=== PATIENT | female | born 1955 | race Caucasian/White ===

== ENCOUNTER → 2021-07-03 11:47 | Outpatient (CLI) | payer MEDICARE, OTHER, SELFPAY ==
[2021-07-03 13:24] LABS: COVID19 -Nasal RAPID Negative (Negative)
== END ==
PROVIDERS: Family Provider Nurse Practitioner Family; PCP Nurse Practitioner Family; Visit Provider Nurse Practitioner
DX: Z01.812 Encounter for preprocedural laboratory examination (principal); Z20.822 Contact with and (suspected) exposure to COVID-19; M81.0 Age-related osteoporosis without current pathological fracture; Z78.0 Asymptomatic menopausal state; Z82.62 Family history of osteoporosis
CPT/HCPCS: 77080; 87635; C9803

== ENCOUNTER → 2021-07-03 14:48 | Outpatient (CLI) | payer MEDICARE, OTHER, SELFPAY ==
--- NOTE | 2021-07-03 | DI.MG.S_ITS ---
BILATERAL DIGITAL SCREENING MAMMOGRAM 3D/2D WITH CAD: 07/03/2021 CLINICAL: Routine screening. Comparison is made to exams dated: 02/24/2014 mammogram, 12/22/2012 mammogram, and 08/30/2011 mammogram - Located Within [facility]. The tissue of both breasts is predominantly fatty. Current study was also evaluated with a Computer Aided Detection (CAD) system. No significant masses, calcifications, or other findings are seen in either breast. There has been no significant interval change. IMPRESSION: NEGATIVE There is no mammographic evidence of malignancy. A 1 year screening mammogram is recommended. This exam was interpreted at Station ID: [id number]. NOTE: For mammograms, a report in lay terms will be sent to the patient. Approximately 15% of breast malignancies will not be visualized mammographically. In the management of a palpable breast mass, a negative mammogram must not discourage biopsy of a clinically suspicious lesion. Electronically Signed By: Ernesto Lopez M.D., jr/monae:07/03/2021 16:11:30 letter sent: Normal Exam ACR BI-RADS Category 1: Negative [id number]
--- NOTE | 2021-07-03 | DI.RAD.S_ITS ---
PROCEDURE: XR DEXA AXIAL SKELETON INDICATIONS: ROUTINE SCREENING COMPARISON: None. FINDINGS: This blank DEXA report has been sent in error by the PACS system. The correct and complete report will be forthcoming in 1-2 days. Thank you for your patience and understanding. Dictated by: Sally Cuevas MD, PhD on 07/03/2021 at 16:34 Approved by: Sally Cuevas MD, PhD on 07/03/2021 at 16:34
== END ==
PROVIDERS: Family Provider Nurse Practitioner Family; PCP Student in an Organized Health Care Education/Training Program; Referring Provider Student in an Organized Health Care Education/Training Program; Visit Provider Student in an Organized Health Care Education/Training Program
DX: Z12.31 Encounter for screening mammogram for malignant neoplasm of breast (principal)
CPT/HCPCS: 77063; 77067; 77080

== ENCOUNTER 2021-07-05 13:23 | Day surgery (SDC) | payer MEDICARE, OTHER, SELFPAY ==
[2021-07-05] VITALS (8 sets, daily range): BP systolic 127–151; BP diastolic 7–84; PULSE 54–71; RESP 13–21; TEMP 36.6–36.7; O2SAT 95–98; BMI 29.2
--- NOTE | 2021-07-05 12:39 | PM.HP.1 ---
History of Present Illness History of Present Illness Date Patient Seen: 07/05/21 Chief complaint: SCREENING COLONOSCOPY Narrative: 65 year old female comes in today for consideration of a screening colonoscopy. She has had 4 previous colonoscopies, all with polyps. There have been no lower GI symptoms suggesting disease such as change in bowel habits, bleeding, abdominal pain or anemia. Both mother and maternal grandmother had colon cancer. Overall health issues have been stable, including no major cardiac events for at least 6 weeks. PCP: Dr. Gong Past Medical History: HYPERTENSION: MURMUR: HYPERLIPIDEMIA: DEPRESSION/ANXIETY: OSTEOPOROSIS: VITAMIN D DEFICIENCY: HYSTERECTOMY (1996): Past Surgical History: Appendectomy (1994) Partial Hysterectomy (1996) Laser liposuction of abdomen-2014 , 1988 [place] teeth Vein ablation Colonoscopy x4 Family History: Father: age 76, multiple myleoma, Alzheimer's, Leukemia, Hypertension, Hyperlipidemia. 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 - [employer] Household Members: 2 () Education: 2 glasses of wine daily Alcohol drinks/day: 2/day Caffeine use/day: 2 Type of Exercise: walk Exercise Times per Week: daily Guns in home: yes Dental Care w/in 6 mos.: yes Sun Exposure: occasionally Seat Belt Use: yes Smoking Status: never Drug Use: never HIV High Risk Behavior: no Patient History Medical History (Updated 07/05/21 @ 14:24 by Kelly Tyler RN) Anxiety Depression Hyperlipemia Hypertension Murmur Osteoporosis Vitamin D deficiency Surgical History (Updated 07/05/21 @ 14:24 by Kelly Tyler RN) History of hysterectomy Meds Home Medications and Allergies Home Medications Medication Instructions Recorded Confirmed Type amlodipine 5 mg tablet 7.5 mg PO DAILY 07/05/21 07/05/21 History ashwagandha root extract 300 mg 300 mg PO DAILY 07/05/21 07/05/21 History capsule cholecalciferol (vitamin D3) 50 2,000 unit PO DAILY 07/05/21 07/05/21 History mcg (2,000 unit) capsule (Vitamin D3) niacin 1,000 mg tablet,extended 1,000 mg PO DAILY 07/05/21 07/05/21 History release 24 hr rosuvastatin 40 mg tablet 40 mg PO DAILY 07/05/21 07/05/21 History Allergies Allergy/AdvReac Type Severity Reaction Status Date / Time nitrofurantoin Allergy Severe Headache Verified 07/05/21 13:54 [From Macrobid] adhesive tape Allergy Intermediate Rash Verified 07/05/21 13:54 cephalexin Allergy Mild RASH Unverified 12/30/17 12:00 iodine Allergy Mild RASH Unverified 12/30/17 12:00 oxycodone Allergy Mild RASH Unverified 12/30/17 12:00 Review of Systems Review of Systems Narrative: See HPI. Exam Narrative Exam Narrative: GENERAL: Alert and oriented, appearing stated age and in no acute distress. HEENT: Head normocephalic/atraumatic. LUNGS: Clear to ausculation bilaterally, no wheezes, rhonchi or rales. CV: Normal S1 and S2 with regular rate and rhythm, no audible murmurs, rubs or gallops. ABDOMEN: Soft, non-tender, non-distended, no organomegaly. Positive bowel sounds. EXTREMITIES: No clubbing, cyanosis, or edema. NEURO: Cranial nerves II through XII grossly intact, no focal deficits. PSYCH: Alert and oriented x 3. SKIN: No concerning lesions. Assessment & Plan Assessment & Plan narrative: 1. History of colon polyps 2. Family history of colon cancer 3. Screening for colon cancer Plan for colonoscopy. The nature and character of the procedure as well as anticipated results were discussed. The possibility of not completing the procedure was also discussed. Possible complications including aspiration pneumonia, bleeding, perforation and reaction to medications either for sedation or preparation and missed lesions were discussed. Questions were answered and proceeding to the colonoscopy was elected. Informed consent signed. I sincerely appreciate the referral allowing me to participate in this patient's care. Please contact me with any questions or concerns. Time Spent With Patient Critical Care time: I spent a total of [] minutes of critical care time on this patient's care today; this time is exclusive of procedural time.
--- NOTE | 2021-07-05 12:42 | PM.OP.COLON ---
Procedure Notes SCOAP/Timeout: 2:35 p.m. Procedure in detail: ENDOSCOPIST: Izzy Gong MD Sedation RN: Siri Rincon RN Sedation start time: 2:36 p.m. Sedation end time: 3:01 p.m. PROCEDURE: Colonoscopy INDICATIONS: 1. History of colon polyps 2. Family history of colon cancer 3. Screening for colon cancer MEDICATION: Levsin 0.125 mg sublingual, incremental doses of Versed and fentanyl until appropriate level sedation achieved. ASA CLASS: 2 CECAL WITHDRAWAL TIME: 10 minutes COMPLICATIONS: None. EXTENT OF PROCEDURE: Cecum. QUALITY OF PREP: Good with portions of liquid stool. PROCEDURE: Prior to insertion of the colonoscope, a digital rectal examination was accomplished with circumferential palpation of the distal rectal mucosa without significant findings being noted. The high-definition pediatric colonoscope was passed into the rectum in the usual fashion and advanced over to the cecum without difficulty. The ileocecal valve, appendiceal stoma, and medial wall all could be inspected and no abnormalities were seen. ASCENDING COLON: As the colonoscope was withdrawn, care was taken to expose and inspect the haustral folds and no abnormalities were seen. HEPATIC FLEXURE: Normal, no polyps, diverticula or other abnormalities. TRANSVERSE COLON: Normal, no polyps, diverticula or other abnormalities. DESCENDING COLON: Normal, no polyps, diverticula or other abnormalities. SIGMOID COLON: Normal, no polyps, diverticula or other abnormalities. RECTUM: Normal. J maneuver was produced. There was no significant perianal disease. The J maneuver was broken. The remainder of the rectum was inspected and there was no external hemorrhoid disease. The scope was withdrawn. IMPRESSION: 1. Normal colonoscopy PLAN: 1. Secondary to personal history of colon polyps and family history of colon cancer, repeat colonoscopy in 5 years. The possibility of a missed lesion including a malignancy has been discussed with the patient previously. Potential alarm symptoms have been discussed and should be reported immediately.
[2021-07-05] MEDS: LACTATED RINGERS 1,000 ML 42 ML IV (14:07)
[2021-07-05] MEDS: MIDAZOLAM 5 MG/5 ML VIAL IV (15:04)
[2021-07-05] MEDS: fentaNYL 250 MCG/5 ML INJ IV (15:05)
== END 2021-07-05 15:55 | disposition home or self-care (01) ==
PROVIDERS: Family Provider Nurse Practitioner Family; PCP Student in an Organized Health Care Education/Training Program; Referring Provider Student in an Organized Health Care Education/Training Program; Visit Provider Student in an Organized Health Care Education/Training Program
PROC: 0DJD8ZZ Inspection of Lower Intestinal Tract, Via Natural or Artificial Opening Endoscopic (ICD-10-PCS; CPT 45378; principal; 2021-07-05 14:30)
DX: Z12.11 Encounter for screening for malignant neoplasm of colon (principal); Z86.010 Personal history of colon polyps; Z80.0 Family history of malignant neoplasm of digestive organs; I10 Essential (primary) hypertension; E78.5 Hyperlipidemia, unspecified; E55.9 Vitamin D deficiency, unspecified; R01.1 Cardiac murmur, unspecified
CPT/HCPCS: G0105; J2250; J3010

== ENCOUNTER → 2022-04-20 14:37 | Outpatient (CLI) | payer MEDICARE, OTHER, SELFPAY ==
--- NOTE | 2022-04-20 14:42 | DI.RAD.S_ITS ---
PROCEDURE: XR CHEST 2V INDICATIONS: Cough TECHNIQUE: 2 views of the chest were acquired. COMPARISON: [facility], , CHEST 1 VIEW, 11/07/2013, 17:06. FINDINGS: Surgical changes and devices: None. Lungs and pleura: Lungs are clear. No pleural effusions or pneumothorax. Mediastinum: Mediastinal contours are normal. Heart size is normal. Bones and chest wall: No suspicious bony abnormalities. Soft tissues appear unremarkable. IMPRESSION: No evidence acute pulmonary process. Dictated by: Teo Trevino M.D. on 04/20/2022 at 14:13 Approved by: Teo Trevino M.D. on 04/20/2022 at 14:14
== END ==
PROVIDERS: Family Provider Nurse Practitioner Family; PCP Student in an Organized Health Care Education/Training Program; Referring Provider Nurse Practitioner Family; Visit Provider Nurse Practitioner Family
DX: R05.9 Cough, unspecified (principal)
CPT/HCPCS: 71046

== ENCOUNTER 2022-05-20 04:50 | Emergency (ER) | payer MEDICARE, OTHER, SELFPAY ==
[2022-05-20 05:00] VITALS: BP 159/74; PULSE 60; RESP 18; TEMP 36.2; O2SAT 97; BMI 30.2
--- NOTE | 2022-05-20 05:26 | PC.NURSE ---
pt states she awoke with these symptoms about 24 hours ago. Pain starts at her left back and radiates to her mid abdomen. denies difficulty urinating. SOB, nausea, numbness or tingling
--- NOTE | 2022-05-20 05:57 | ED_ITS ---
HPI - Back Pain/Injury General Chief Complaint: Back Pain/Injury Stated Complaint: severe back pain, muscle spasms Time Seen by Provider: 05/20/22 05:26 Source: patient Related Data Home Medications Medication Instructions Recorded Confirmed amlodipine 5 mg tablet 7.5 mg PO DAILY 07/05/21 04/20/22 ashmarinadha root extract 300 mg 300 mg PO DAILY 07/05/21 04/20/22 capsule cholecalciferol (vitamin D3) 50 2,000 unit PO DAILY 07/05/21 04/20/22 mcg (2,000 unit) capsule (Vitamin D3) niacin 500 mg capsule,extended 500 mg PO DAILY 04/20/22 04/20/22 release rosuvastatin 20 mg tablet 20 mg PO DAILY 04/20/22 04/20/22 Previous Rx's Medication Instructions Recorded benzonatate 100 mg capsule 100 mg PO BID PRN cough #20 caps 04/20/22 Allergies Allergy/AdvReac Type Severity Reaction Status Date / Time nitrofurantoin Allergy Severe Headache Verified 04/20/22 14:27 [From Macrobid] adhesive tape Allergy Intermediate Rash Verified 04/20/22 14:27 cephalexin Allergy Mild RASH Verified 04/20/22 14:27 iodine Allergy Mild RASH Verified 04/20/22 14:27 oxycodone Allergy Mild RASH Verified 04/20/22 14:27 Patient History Medical History (Updated 07/05/21 @ 14:24 by Kelly Tyler RN) Anxiety Depression Hyperlipemia Hypertension Murmur Osteoporosis Vitamin D deficiency Surgical History (Updated 07/05/21 @ 14:24 by Kelly Tyler RN) History of hysterectomy Social History household members: family Smoking Status: Never smoker alcohol intake: current Smoking Status: Never smoker alcohol intake frequency: 0-2 drinks per day Substance Use Type: does not use Exam Initial Vital Signs Initial Vital Signs: Vital Signs Temperature 97.1 F L 05/20/22 05:00 Pulse Rate 60 05/20/22 05:00 Respiratory Rate 18 05/20/22 05:00 Blood Pressure 159/74 H 05/20/22 05:00 Pulse Oximetry 97 05/20/22 05:00 Oxygen Delivery Method 05/20/22 05:00 Course Orders Ordered: ED Orders 05/20/22 EKG-12 Lead Routine 05/20/22 05:20 Complete Blood Count AUTO DIFF Stat Comprehensive Metabolic Panel Stat Lipase Stat Magnesium Stat 05/20/22 06:29 XR chest 1V Stat 05/20/22 06:30 CT abdomen pelvis w con Stat Hydromorphone HCl (Hydromorphone 0.5 Mg Inj) 0.5 mg IV Q15MIN PRN PRN Reason: Pain, Last Admin: 05/20/22 06:34 Dose: 0.5 mg Documented By: YADIEL Sodium Chloride (Normal Saline 0.9%) 1,000 mls @ 1,000 mls/hr IV BOLUS ONE Stop: 05/20/22 07:27 Last Admin: 05/20/22 06:34 Dose: 1,000 mls/hr Documented By: YADIEL Discontinued Medications Ketorolac Tromethamine (Ketorolac 30 Mg/Ml Vial) 15 mg IV NOW ONE Stop: 05/20/22 06:29 Last Admin: 05/20/22 06:34 Dose: 15 mg Documented By: YADIEL Vital Signs Vital signs: Vital Signs - 8 hr 05/20/22 05:00 Temperature 97.1 F L Pulse Rate 60 Respiratory Rate 18 Blood Pressure 159/74 H Pulse Oximetry 97 Oxygen Delivery Method Room Air MDM - Back Pain/Injury Lab Data Result diagrams: 05/20/22 05:20 05/20/22 05:20 Labs: Lab Results 05/20/22 05/20/22 Range/Units 05:20 05:20 WBC 5.3 (4.5-11.0) X10^3/uL RBC 4.48 (4.0-5.2) X10^6/uL Hgb 12.2 (12.0-16.0) g/dL Hct 36.9 (36-46) % MCV 82.4 (80-100) fL MCH 27.2 (26-34) PG MCHC 33.1 (30-36) % RDW 18.8 H (11.6-14.8) % Plt Count 212 (150-400) X10^3/uL Neut % (Auto) 58.8 (50-75) % Lymph % (Auto) 22.3 L (25-40) % [place] % (Auto) 15.3 H (3-14) % Eos % (Auto) 2.7 (2-4) % Baso % (Auto) 0.9 (0-2) % Neut # (Auto) 3100 (1587-4375) /uL Lymph # (Auto) 1200 (0132-2853) /uL [place] # (Auto) 800 (0-900) /uL Eos # (Auto) 100 (0-450) /uL Baso # (Auto) 0 (0-100) /uL Sodium 139 (137-145) mmol/L Potassium 4.4 (3.4-5.1) mmol/L Chloride 106 (98-107) mmol/L Carbon Dioxide 27 (22-32) mmol/L BUN 17 (7-17) mg/dL Creatinine 0.69 (0.52-1.04) mg/dL Estimated GFR > 60 (>60) mL/min BUN/Creatinine Ratio 24.6 H (6-22) Glucose 104 (80-110) mg/dL Calcium 8.8 (8.4-10.2) mg/dL Magnesium 2.2 (1.6-2.3) mg/dL Total Bilirubin 0.5 (0.2-1.3) mg/dL AST 28 (14-36) IU/L ALT 20 (<35) IU/L Alkaline Phosphatase 52 (38-126) U/L Total Protein 7.6 (6.3-8.2) g/dL Albumin 4.2 (3.5-5.0) g/dL Globulin 3.4 (1.7-4.1) g/dL Albumin/Globulin Ratio 1.2 (1.0-2.8) Lipase 64 (23-300) U/L Urine Dip Bedside Urine Glucose Negative Bedside Urine Bilirubin - Negative Bedside Urine Ketone - Negative Urine Specific [place] 1.025 Bedside Urine Occult Blood - Negative Bedside Urine pH 6.0 Bedside Urine Protein - Negative Bedside Urine Urobilinogen - Negative Bedside Urine Nitrite - Negative Bedside Urine Leukocytes - Negative Esterase Discharge Plan Departure Prescriptions: No Action niacin 500 mg capsule, extended release 500 mg PO DAILY rosuvastatin 20 mg tablet 20 mg PO DAILY benzonatate 100 mg capsule 100 mg PO BID PRN (Reason: cough) Qty: 20 0RF amlodipine 5 mg tablet 7.5 mg PO DAILY Label Comments: take 1 tablet by mouth once daily cholecalciferol (vitamin D3) [Vitamin D3] 50 mcg (2,000 unit) Capsule 2,000 unit PO DAILY ashwagandha root extract 300 mg Capsule 300 mg PO DAILY Referrals: Izzy Gong MD [Primary Care Provider] -
--- NOTE | 2022-05-20 06:29 | DI.RAD.S_ITS ---
PROCEDURE: XR CHEST 1V INDICATIONS: LUQ pain TECHNIQUE: One view of the chest was acquired. COMPARISON: [facility], CR, XR CHEST 2V, 04/20/2022, 14:46. FINDINGS: Surgical changes and devices: None. Lungs and pleura: Bibasilar atelectasis are seen. No definite focal infiltrate. No pleural effusions or pneumothorax. Mediastinum: Tortuous thoracic aorta is seen. Heart size is mildly enlarged. Bones and chest wall: No suspicious bony lesions. Overlying soft tissues appear unremarkable. IMPRESSION: Bibasilar atelectasis. No definite focal infiltrate. No pleural effusion or pneumothorax. Dictated by: Seven Oakley M.D. on 05/20/2022 at 8:02 Approved by: Seven Oakley M.D. on 05/20/2022 at 8:02
--- NOTE | 2022-05-20 06:30 | DI.CT.S_ITS ---
PROCEDURE: CT ABDOMEN PELVIS W CON INDICATIONS: LUQ pain TECHNIQUE: After the administration of intravenous contrast, axial sections acquired from the lung bases to the pubic symphysis. Coronal and sagittal reformats were performed. For radiation dose reduction, the following was used: automated exposure control, adjustment of mA and/or kV according to patient size. COMPARISON: None. FINDINGS: Image quality: Excellent. Lung bases: Dependent atelectasis/scarring in posterior and lateral periphery of bilateral lung bases are seen. Small left basilar infiltrates cannot be excluded. No pleural effusion or pneumothorax. Heart: No significant findings. ABDOMEN: Liver: Unremarkable. Gallbladder: Unremarkable. Biliary ducts: Unremarkable. Pancreas: Unremarkable. Spleen: Unremarkable. Adrenal Glands: Unremarkable. Kidneys and Ureters: Unremarkable. Stomach and Bowel: There is a small hiatal hernia. No evidence of bowel obstruction. Moderate fecal stasis in the colon is seen. No gross gastric or small bowel wall thickening. Questionable wall thickening involving distal descending colon in left lower quadrant abdomen is seen which may be due to under distension, low-grade colitis or diverticulitis cannot be entirely excluded. Mild sigmoid and descending colon diverticulosis is seen. No significant pericolonic fat stranding. No abscess collection. Peritoneum: No abnormal intraperitoneal fluid. No free air. Ventral Wall: No hernias. Abdominal Nodes: No retroperitoneal or mesenteric adenopathy by size criteria. Vessels: Aorta and inferior vena cava are normal in size. Mild atherosclerotic disease in abdominal aorta is seen. PELVIS: Pelvic Organs: Unremarkable. Bladder: Unremarkable. Pelvic Nodes: No enlarged lymph nodes. Miscellaneous: No hernias are seen. Bones: No suspicious bony lesion. No acute vertebral body compression fracture. Chronic appearing anterior wedge compression deformity at L1 and L2 levels are seen with up to 20% loss of L1 vertebral body height anteriorly. IMPRESSION: 1. Questionable colonic wall thickening involving distal descending colon and possibly proximal sigmoid colon which may indicate low-grade colitis versus diverticulitis. No abscess collection. No free fluid or free air. 2. Mild constipation. No evidence of bowel obstruction. 3. Bibasilar scarring/atelectasis, small infiltrates at left lung base cannot be excluded. No pleural effusion or pneumothorax. Dictated by: Seven Oakley M.D. on 05/20/2022 at 8:03 Approved by: Seven Oakley M.D. on 05/20/2022 at 8:07
[2022-05-20] MEDS: KETOROLAC 30 MG/ML VIAL 15 MG IV (06:34)
[2022-05-20] MEDS: SODIUM CHLORIDE 0.9% 1,000 ML 1000 ML IV (06:34)
[2022-05-20] MEDS: HYDROMORPHONE 0.5 MG INJ IV (06:34)
[2022-05-20 06:40] LABS: Add Manual Diff / Slide Review NO; Basophils Absolute Auto 0 /uL (0-100); Basophils Percent Auto 0.9 % (0-2); Eosinophils Absolute Auto 100 /uL (0-450); Eosinophils Percent Auto 2.7 % (2-4); Hematocrit 36.9 % (36-46); Hemoglobin 12.2 g/dL (12.0-16.0); Lymphocytes Absolute Auto 1200 /uL (1100-4500); Lymphocytes Percent Auto 22.3 % (25-40); Mean Corpuscular HGB Conc 33.1 % (30-36); Mean Corpuscular Hemoglobin 27.2 PG (26-34); Mean Corpuscular Volume 82.4 fL (80-100); Monocytes Absolute Auto 800 /uL (0-900); Monocytes Percent Auto 15.3 % (3-14); Neutrophils Absolute Auto 3100 /uL (1500-7000); Neutrophils Percent Auto 58.8 % (50-75); Platelet Count 212 X10^3/uL (150-400); Red Blood Cell Count 4.48 X10^6/uL (4.0-5.2); Red Cell Distribution Width 18.8 % (11.6-14.8); White Blood Cell Count 5.3 X10^3/uL (4.5-11.0)
[2022-05-20 06:44] LABS: Alanine Aminotransferase 20 IU/L (<35); Albumin 4.2 g/dL (3.5-5.0); Albumin Globulin Ratio 1.2 (1.0-2.8); Alkaline Phosphatase 52 U/L (38-126); Aspartate Aminotransferase 28 IU/L (14-36); BUN Creatinine Ratio 24.6 (6-22); Bilirubin Total 0.5 mg/dL (0.2-1.3); Blood Urea Nitrogen 17 mg/dL (7-17); Calcium 8.8 mg/dL (8.4-10.2); Carbon Dioxide 27 mmol/L (22-32); Chloride 106 mmol/L (98-107); Estimated Glomerular Filt Rate > 60 mL/min (>60); Globulin 3.4 g/dL (1.7-4.1); Glucose 104 mg/dL (80-110); HEMOLYSIS < 15 (0-50); Lipase 64 U/L (23-300); Magnesium 2.2 mg/dL (1.6-2.3); Potassium 4.4 mmol/L (3.4-5.1); Sodium 139 mmol/L (137-145); Total Protein 7.6 g/dL (6.3-8.2)
[2022-05-20 07:00] VITALS: BP 134/62; PULSE 53; RESP 26; O2SAT 94
[2022-05-20 07:44] VITALS: PULSE 63; RESP 17; O2SAT 93
[2022-05-20 07:45] VITALS: BP 133/64; PULSE 60; RESP 20; O2SAT 97
--- NOTE | 2022-05-20 07:49 | ED_ITS ---
HPI - Back Pain/Injury General Chief Complaint: Back Pain/Injury Stated Complaint: severe back pain, muscle spasms Time Seen by Provider: 05/20/22 05:26 Source: patient Limitations: no limitations History of Present Illness HPI Narrative: 66-year-old female with history of dyslipidemia hypertension presents with back pain and started after getting up she states her back was bothering her a little bit and she describes it as lower thoracic. Patient states she is had some sacroiliac issues in the past but not in her back higher up. She states she would a fall 4 months ago thing she cracked some ribs but this had healed. She denies fevers or chills. She is had some persistent cough at night month ago she had upper respiratory illness, tested negative for COVID 4 times and has recovered except for her nighttime cough. Denies chest pain or pressure, denies shortness of breath, denies any syncope or passing out. No nausea or vomiting. States some decrease in stool output but having bowel movements. No dysuria urgency or frequency or color change. No bowel or bladder incontinence. She states pain does not radiate down the legs, she does not have any numbness or tingling. Movement of her legs does not seem to bother her but movement of her torso does. She states started on the left side radiates a little bit to the right but Maze mostly on the left patient states she is on a statin for cholesterol and antihypertensive. She is had a prior hysterectomy and appendectomy. She is allergic to Cipro, Macrobid, Percodan topical iodine but tolerates contrast. No tobacco, 1-2 alcoholic drinks nightly, no illicit other than THC edible gummy. Related Data Home Medications Medication Instructions Recorded Confirmed amlodipine 5 mg tablet 7.5 mg PO DAILY 07/05/21 04/20/22 ashwagandha root extract 300 mg 300 mg PO DAILY 07/05/21 04/20/22 capsule cholecalciferol (vitamin D3) 50 2,000 unit PO DAILY 07/05/21 04/20/22 mcg (2,000 unit) capsule (Vitamin D3) niacin 500 mg capsule,extended 500 mg PO DAILY 04/20/22 04/20/22 release rosuvastatin 20 mg tablet 20 mg PO DAILY 04/20/22 04/20/22 Previous Rx's Medication Instructions Recorded benzonatate 100 mg capsule 100 mg PO BID PRN cough #20 caps 04/20/22 cyclobenzaprine 10 mg tablet 10 mg PO TID PRN muscle spasm #14 05/20/22 tabs meloxicam 7.5 mg tablet 7.5 mg PO BID PRN pain #14 tabs 05/20/22 Allergies Allergy/AdvReac Type Severity Reaction Status Date / Time nitrofurantoin Allergy Severe Headache Verified 04/20/22 14:27 [From Macrobid] adhesive tape Allergy Intermediate Rash Verified 04/20/22 14:27 cephalexin Allergy Mild RASH Verified 04/20/22 14:27 iodine Allergy Mild RASH Verified 04/20/22 14:27 oxycodone Allergy Mild RASH Verified 04/20/22 14:27 Review of Systems Review of Systems ROS Unobtainable: All systems reviewed & are unremarkable except as noted in HPI and below Patient History Medical History Anxiety Depression Hyperlipemia Hypertension Murmur Osteoporosis Vitamin D deficiency Surgical History History of hysterectomy Social History household members: family Smoking Status: Never smoker alcohol intake: current Smoking Status: Never smoker alcohol intake frequency: 0-2 drinks per day Substance Use Type: does not use Exam Narrative Exam Narrative: GENERAL: Alert and oriented x three, female in mild distress. Patient has already been medicated when seen by myself. HEENT: Head normocephalic, atraumatic, EOMI, pupils reactive, face symmetric, moist mucous membranes NECK: Supple, full range of motion CARDIOVASCULAR: Regular rate and rhythm without murmurs, rubs or gallops. RESPIRATORY: Breath sounds equal bilaterally, no wheezes rales or rhonchi. ABDOMEN: Soft, nontender. Normoactive bowel sounds all 4 quadrants. No guarding or rebound, rigidity, no mass : No CVA tenderness BACK: No cervical, thoracic or lumbar vertebral point tenderness. Patient has decreased range of motion, she does appear to be uncomfortable when trying to lean forward in the bed and requires a little bit of assistance forward. No saddle anesthesia. Muscle strength is 5/5 in lower extremities, DTRs are 2/4 and lower extremities. Dorsalis pedis and tibialis pulses are 2+ and lower extremities. Sensation is intact in the lower extremities. Patient does not have increased pain with straight leg raise bilaterally. EXTREMITIES: Normal range of motion, no clubbing or edema. Neurovascularly intact NEUROLOGICAL: Cranial nerves II through XII grossly intact. Moving all extremities SKIN: Warm, dry, no petechiae, no rashes or lesions, no vesicles or erythema. Initial Vital Signs Initial Vital Signs: Vital Signs Temperature 97.1 F L 05/20/22 05:00 Pulse Rate 60 05/20/22 05:00 Respiratory Rate 18 05/20/22 05:00 Blood Pressure 159/74 H 05/20/22 05:00 Pulse Oximetry 97 05/20/22 05:00 Oxygen Delivery Method 05/20/22 05:00 Course Orders Ordered: Discontinued Medications Hydromorphone HCl (Hydromorphone 0.5 Mg Inj) 0.5 mg IV Q15MIN PRN PRN Reason: Pain, Last Admin: 05/20/22 06:34 Dose: 0.5 mg Documented By: YADIEL Sodium Chloride (Normal Saline 0.9%) 1,000 mls @ 1,000 mls/hr IV BOLUS ONE Stop: 05/20/22 07:27 Last Infusion: 05/20/22 08:25 Dose: 0 mls/hr Documented By: Admin: 05/20/22 06:34 Dose: 1,000 mls/hr Documented By: YADIEL Ketorolac Tromethamine (Ketorolac 30 Mg/Ml Vial) 15 mg IV NOW ONE Stop: 05/20/22 06:29 Last Admin: 05/20/22 06:34 Dose: 15 mg Documented By: YADIEL Vital Signs Vital signs: Vital Signs - 8 hr 05/20/22 05:00 05/20/22 07:00 05/20/22 07:00 Temperature 97.1 F L Pulse Rate 60 53 L Respiratory Rate 18 26 H Blood Pressure 159/74 H 134/62 Pulse Oximetry 97 94 Oxygen Delivery Method Room Air MDM - Back Pain/Injury Lab Data Result diagrams: 05/20/22 05:20 05/20/22 05:20 Labs: Lab Results 05/20/22 05/20/22 Range/Units 05:20 05:20 WBC 5.3 (4.5-11.0) X10^3/uL RBC 4.48 (4.0-5.2) X10^6/uL Hgb 12.2 (12.0-16.0) g/dL Hct 36.9 (36-46) % MCV 82.4 (80-100) fL MCH 27.2 (26-34) PG MCHC 33.1 (30-36) % RDW 18.8 H (11.6-14.8) % Plt Count 212 (150-400) X10^3/uL Neut % (Auto) 58.8 (50-75) % Lymph % (Auto) 22.3 L (25-40) % Holmes % (Auto) 15.3 H (3-14) % Eos % (Auto) 2.7 (2-4) % Baso % (Auto) 0.9 (0-2) % Neut # (Auto) 3100 (5818-8603) /uL Lymph # (Auto) 1200 (9363-4656) /uL Holmes # (Auto) 800 (0-900) /uL Eos # (Auto) 100 (0-450) /uL Baso # (Auto) 0 (0-100) /uL Sodium 139 (137-145) mmol/L Potassium 4.4 (3.4-5.1) mmol/L Chloride 106 (98-107) mmol/L Carbon Dioxide 27 (22-32) mmol/L BUN 17 (7-17) mg/dL Creatinine 0.69 (0.52-1.04) mg/dL Estimated GFR > 60 (>60) mL/min BUN/Creatinine Ratio 24.6 H (6-22) Glucose 104 (80-110) mg/dL Calcium 8.8 (8.4-10.2) mg/dL Magnesium 2.2 (1.6-2.3) mg/dL Total Bilirubin 0.5 (0.2-1.3) mg/dL AST 28 (14-36) IU/L ALT 20 (<35) IU/L Alkaline Phosphatase 52 (38-126) U/L Total Protein 7.6 (6.3-8.2) g/dL Albumin 4.2 (3.5-5.0) g/dL Globulin 3.4 (1.7-4.1) g/dL Albumin/Globulin Ratio 1.2 (1.0-2.8) Lipase 64 (23-300) U/L Urine Dip Bedside Urine Glucose Negative Bedside Urine Bilirubin - Negative Bedside Urine Ketone - Negative Urine Specific [place] 1.025 Bedside Urine Occult Blood - Negative Bedside Urine pH 6.0 Bedside Urine Protein - Negative Bedside Urine Urobilinogen - Negative Bedside Urine Nitrite - Negative Bedside Urine Leukocytes - Negative Esterase Imaging Data CT scan - abdomen/pelvis: Radiologist's Impression: Close Abdomen/Pelvis CT (Signed) Seven Oakley - 05/20/22 Chest X-Ray (Signed) Seven Oakley - 05/20/22 Launch?[place] [id number] CT Scan Report Signed Patient: Gianni Peña MR#: [id number] : 1955 Acct:[id number] Age/Sex: 66 / F Date of Service: 05/20/22 Loc: ED Accession Number: [id number] ?? Procedure: CT abdomen pelvis w con Ordering Provider: Lashaun Chavarria MD PROCEDURE:? CT ABDOMEN PELVIS W CON ? INDICATIONS:? LUQ pain ? TECHNIQUE:? After the administration of intravenous contrast, axial sections acquired from the lung bases to the pubic symphysis.? Coronal and sagittal reformats were performed.? For radiation dose reduction, the following was used:? automated exposure control, adjustment of mA and/or kV according to patient size.? ? COMPARISON:? None. ? FINDINGS:? Image quality:? Excellent.? ? Lung bases:? Dependent atelectasis/scarring in posterior and lateral periphery of bilateral lung bases are seen.? Small left basilar infiltrates cannot be excluded.? No pleural effusion or pneumothorax. Heart:? No significant findings. ? ABDOMEN: Liver:? Unremarkable.? ? Gallbladder:? Unremarkable. Biliary ducts:? Unremarkable.? ? Pancreas:? Unremarkable.? ? Spleen:? Unremarkable.? ? Adrenal Glands:? Unremarkable.? ? Kidneys and Ureters:? Unremarkable.? ? ? Stomach and Bowel:? There is a small hiatal hernia.? No evidence of bowel obstruction.? Moderate fecal stasis in the colon is seen.? No gross gastric or small bowel wall thickening.? Questionable wall thickening involving distal descending colon in left lower quadrant abdomen is seen which may be due to under distension, low-grade colitis or diverticulitis cannot be entirely excluded.? Mild sigmoid and descending colon diverticulosis is seen.? No significant pericolonic fat stranding.? No abscess collection. Peritoneum:? No abnormal intraperitoneal fluid.? No free air.? ? Ventral Wall: ? No hernias.? Abdominal Nodes:? No retroperitoneal or mesenteric adenopathy by size criteria.? Vessels:? Aorta and inferior vena cava are normal in size.? Mild atherosclerotic disease in abdominal aorta is seen.? ? PELVIS: Pelvic Organs:? Unremarkable.? ? Bladder:? Unremarkable.? ? Pelvic Nodes: No enlarged lymph nodes.? Miscellaneous: No hernias are seen. ? ? ? Bones:? No suspicious bony lesion.? No acute vertebral body compression fracture.? Chronic appearing anterior wedge compression deformity at L1 and L2 levels are seen with up to 20% loss of L1 vertebral body height anteriorly. ? ? IMPRESSION:? 1. Questionable colonic wall thickening involving distal descending colon and possibly proximal sigmoid colon which may indicate low-grade colitis versus diverticulitis.? No abscess collection.? No free fluid or free air. 2. Mild constipation.? No evidence of bowel obstruction. 3. Bibasilar scarring/atelectasis, small infiltrates at left lung base cannot be excluded.? No pleural effusion or pneumothorax.? ? ? Dictated by: Seven Oakley M.D. on 05/20/2022 at 8:03 ? ? Approved by: Seven Oakley M.D. on 05/20/2022 at 8:07?? Chest x-ray: Radiologist's Impression: Gianni Peña??66??F??1955 ? Allergy/Adv: nitrofurantoin, adhesive tape, cephalexin, iodine, oxycodone (More??) Close Abdomen/Pelvis CT 05/20/22 Chest X-Ray (Signed) Seven Oakley - 05/20/22 Chest X-Ray (Signed) Teo Trevino - 04/20/22 Telemetry Strips 07/05/21 Mammogram Screening (Signed) Ernesto Lopez - 07/03/21 Bone Densitometry (Signed) Sally Cuevas - 07/03/21 Launch?[address] [address] XRay Report Signed Patient: Gianni Peña MR#: [id number] : 1955 Acct:[id number] Age/Sex: 66 / F Date of Service: 05/20/22 Loc: ED Accession Number: [id number] ?? Procedure: XR chest 1V Ordering Provider: Lashaun Chavarria MD PROCEDURE:? XR CHEST 1V ? INDICATIONS:? LUQ pain ? TECHNIQUE:? One view of the chest was acquired.? ? COMPARISON:? [facility], CR, XR CHEST 2V, 04/20/2022, 14:46. ? FINDINGS:? ? Surgical changes and devices:? None.? ? Lungs and pleura:? Bibasilar atelectasis are seen.? No definite focal infiltrate.? No pleural effusions or pneumothorax.? ? Mediastinum:? Tortuous thoracic aorta is seen.? Heart size is mildly enlarged. ? Bones and chest wall:? No suspicious bony lesions.? Overlying soft tissues appear unremarkable.? ? IMPRESSION:? Bibasilar atelectasis.? No definite focal infiltrate.? No pleural effusion or pneumothorax. ? ? Dictated by: Seven Oakley M.D. on 05/20/2022 at 8:02 ? ? Approved by: Seven Oakley M.D. on 05/20/2022 at 8:02?? ECG Data Attestation: I personally reviewed and interpreted this ECG as follows: Interpretation: Sinus bradycardia rate of 57 [place] 258 QRS is 76 and QTC of 410. LAFB, no acute ST elevation. Nonspecific change. Patient has prior from 11/08/2013 with no changes. MDM Narrative Medical decision making narrative: 66-year-old female with complaint of left-sided back pain radiating towards front. CBC, CMP lipase point of care urine are negative. Patient received pain medication ordered by the overnight provider. Patient exam is feeling improved although still a little bit uncomfortable. My exam is otherwise reassuring. Lab work was reviewed, patient was physically seen and independently evaluated by myself. Patient's CT abdomen pelvis shows some possible change at the descending colon sigmoid region but this is not anywhere near patient's pain or consistent with her symptoms today. Do not feel this is a cause of her discomfort. Plan for pain management, medication for muscle spasm and follow-up outpatient at this time. Return precautions. Discharge Plan Departure Patient Disposition: Home Clinical Impression: Back pain Instructions: DI for Back Spasm Activity Restrictions/Additional Instructions: Follow-up with your physician for recheck if your symptoms have not significantly improved in the next week. You may take Tylenol up to a 1000 mg every 6 hours. Meloxicam 1 tablet every 12 hours as needed. Do not take NSAIDs such as ibuprofen or Aleve or naproxen with this medication. You may take 1 tablet every 8 hours as needed for muscle relaxation. This medication can make you sleepy do not drive, perform hazardous activities or make any major decisions while taking it. Prescription sent to [facility] in [place] Please return for rapidly worsening symptoms, fevers, passing out, new chest pain or shortness of breath, persistent vomiting, new numbness, tingling weakness or loss of bowel or bladder control or other new or concerning symptoms. Prescriptions: New meloxicam 7.5 mg tablet 7.5 mg PO BID PRN (Reason: pain) Qty: 14 0RF cyclobenzaprine 10 mg tablet 10 mg PO TID PRN (Reason: muscle spasm) Qty: 14 0RF No Action niacin 500 mg capsule, extended release 500 mg PO DAILY rosuvastatin 20 mg tablet 20 mg PO DAILY benzonatate 100 mg capsule 100 mg PO BID PRN (Reason: cough) Qty: 20 0RF amlodipine 5 mg tablet 7.5 mg PO DAILY Label Comments: take 1 tablet by mouth once daily cholecalciferol (vitamin D3) [Vitamin D3] 50 mcg (2,000 unit) Capsule 2,000 unit PO DAILY ashwagandha root extract 300 mg Capsule 300 mg PO DAILY Referrals: Izzy Gong MD [Primary Care Provider] - Visit Report Forms: Patient Portal/API
[2022-05-20 08:00] VITALS: BP 119/67; PULSE 57; RESP 20; O2SAT 97
[2022-05-20 08:30] VITALS: BP 124/58; PULSE 55; RESP 15; O2SAT 94
== END 2022-05-20 08:55 | disposition home or self-care (01) ==
PROVIDERS: Emergency Medicine; Emergency Provider Emergency Medicine; Family Provider Nurse Practitioner Family; PCP Student in an Organized Health Care Education/Training Program
DX: M54.50 Low back pain, unspecified (principal); R10.12 Left upper quadrant pain
CPT/HCPCS: 71045; 74177; 80053; 81003; 83690; 83735; 85025; 93005; 96361; 96374; 96375; 99283; 99284; J1170; J1885

== ENCOUNTER 2022-09-26 12:12 | Emergency (ER) | payer MEDICARE, OTHER, SELFPAY ==
[2022-09-26 12:16] VITALS: BP 123/88; PULSE 80; RESP 14; TEMP 36.7; O2SAT 99; BMI 30.4
--- NOTE | 2022-09-26 12:22 | DI.RAD.S_ITS ---
PROCEDURE: XR HUMERUS LT 2V INDICATIONS: fall TECHNIQUE: 2 views of the humerus were acquired. COMPARISON: None. FINDINGS: Bones: No previously on identified fractures or dislocations. The humeral diaphysis is free of fracture. No suspicious bony lesions. Soft tissues: No suspicious soft tissue calcifications. IMPRESSION: Previously identified acute humeral head/neck fractures again noted. No diaphysis or distal humeral fracture seen. Again, the elbow is not fully evaluated. Follow-up plain film imaging or CT scanning may become necessary. Dictated by: Blake Green M.D. on 09/26/2022 at 13:06 Approved by: Blake Green M.D. on 09/26/2022 at 13:07
--- NOTE | 2022-09-26 12:22 | DI.RAD.S_ITS ---
PROCEDURE: XR ELBOW LT MIN 3V INDICATIONS: fall TECHNIQUE: 3 views of the elbow were acquired. COMPARISON: None. FINDINGS: Bones: Standard positioning for plain film imaging through the elbow could not be obtained due to patient severe pain from humeral head/neck fractures. The radial head is not fully evaluated and a straight lateral view to assess for joint effusion is not obtained. No definite fractures or dislocations. No suspicious bony lesions. Soft tissues: No elbow joint effusion. No suspicious soft tissue calcifications. IMPRESSION: Suboptimal visualization and repeat plain film imaging or CT scanning when the patient can tolerate positioning for the such examinations is recommended. A definite fracture is not seen but radial head fracture is not effectively evaluated for. Dictated by: Blake Green M.D. on 09/26/2022 at 13:03 Approved by: Blake Green M.D. on 09/26/2022 at 13:05
--- NOTE | 2022-09-26 12:22 | DI.RAD.S_ITS ---
PROCEDURE: XR SHOULDER LT MIN 2V INDICATIONS: fall TECHNIQUE: Three views of the left shoulder obtained. COMPARISON: None. FINDINGS: Bones: No dislocations. No suspicious bony lesions. Visualized ribs appear intact. There is a moderately comminuted humeral head and neck fracture, without dislocation or significant impaction. At least 4 fracture planes can be observed. Soft tissues: No suspicious soft tissue calcifications. IMPRESSION: Comminuted mildly displaced left humeral head/neck fractures. Dictated by: Blake Green M.D. on 09/26/2022 at 13:02 Approved by: Blake Green M.D. on 09/26/2022 at 13:03
[2022-09-26] MEDS: HYDROMORPHONE 0.5 MG INJ IV (12:31)
--- NOTE | 2022-09-26 14:29 | ED.UPPEXIN ---
HPI - Extremity Injury (Upper) <Kyung Mejia PA-C - Last Filed: 09/26/22 16:27> General Chief Complaint: Extremity Injury, Upper Stated Complaint: fall, injured left shoulder Time Seen by Provider: 09/26/22 14:24 Source: patient Mode of arrival: Ambulatory History of Present Illness HPI narrative: The patient is 66 years old female who apparently was walking her dog who pulled the leash and patient went flying forward from several steps, landing on her left elbow, jamming it and heard a cracking sound in the left shoulder during the fall. She got out with some assistance with severe pain in left shoulder, exacerbated with abduction. Currently, after receiving pain medications pain somewhat subside however still 7/10 worse with any attempted movement Related Data Home Medications Medication Instructions Recorded Confirmed amlodipine 5 mg tablet 7.5 mg PO DAILY 07/05/21 04/20/22 ashwagandha root extract 300 mg 300 mg PO DAILY 07/05/21 04/20/22 capsule cholecalciferol (vitamin D3) 50 2,000 unit PO DAILY 07/05/21 04/20/22 mcg (2,000 unit) capsule (Vitamin D3) niacin 500 mg capsule,extended 500 mg PO DAILY 04/20/22 04/20/22 release rosuvastatin 20 mg tablet 20 mg PO DAILY 04/20/22 04/20/22 Previous Rx's Medication Instructions Recorded benzonatate 100 mg capsule 100 mg PO BID PRN cough #20 caps 04/20/22 cyclobenzaprine 10 mg tablet 10 mg PO TID PRN muscle spasm #14 05/20/22 tabs meloxicam 7.5 mg tablet 7.5 mg PO BID PRN pain #14 tabs 05/20/22 tramadol 50 mg tablet 50 mg PO TID PRN pain #30 tabs 09/26/22 Allergies Allergy/AdvReac Type Severity Reaction Status Date / Time nitrofurantoin Allergy Severe Headache Verified 09/26/22 15:34 [From Macrobid] adhesive tape Allergy Intermediate Rash Verified 09/26/22 15:34 cephalexin Allergy Mild RASH Verified 09/26/22 15:34 iodine Allergy Mild RASH Verified 09/26/22 15:34 oxycodone Allergy Mild RASH Verified 09/26/22 15:34 Review of Systems <Kyung Mejia PA-C - Last Filed: 09/26/22 16:27> Review of Systems Narrative: all other systems negative except as above Patient History <Kyung Mejia PA-C - Last Filed: 09/26/22 16:27> Medical History Anxiety Depression Hyperlipemia Hypertension Murmur Osteoporosis Vitamin D deficiency Surgical History History of hysterectomy Social History household members: family Smoking Status: Never smoker alcohol intake: current Smoking Status: Never smoker alcohol intake frequency: 0-2 drinks per day Substance Use Type: does not use Exam <Kyung Mejia PA-C - Last Filed: 09/26/22 16:27> Narrative Exam Narrative: GENERAL: 66 year old patient appears stated age. Well-developed patient, in mild distress due to pain. HEAD: Atraumatic. Normocephalic. EYES: Pupils equal round and reactive. Extraocular motions intact. No scleral icterus. No injection or drainage. ENT: Nose without bleeding, purulent drainage. Throat without erythema, tonsillar hypertrophy or exudate. Airway patent. NECK: Trachea midline. Non tender CARDIOVASCULAR: Regular rate and rhythm without murmurs, gallops, or rubs. RESPIRATORY: Clear to auscultation. Breath sounds equal bilaterally. No wheezes, rales, or rhonchi. GASTROINTESTINAL: Abdomen soft, non-tender, nondistended. Musculoskeletal significant tenderness in anterior aspect of AC joint. Reduced range of motion left arm abduction Left Clavicle appear intact. NEURO: AOx3. Light touch pinprick sensation left arm intact SKIN: No rash or erythema of visible areas Initial Vital Signs Initial Vital Signs: Vital Signs Temperature 98.0 F 09/26/22 12:16 Pulse Rate 80 09/26/22 12:16 Respiratory Rate 14 09/26/22 12:16 Blood Pressure 123/88 09/26/22 12:16 Pulse Oximetry 99 09/26/22 12:16 Oxygen Delivery Method 09/26/22 12:16 <Aruna Odonnell DO - Last Filed: 09/27/22 09:29> Initial Vital Signs Initial Vital Signs: Vital Signs Temperature 98.0 F 09/26/22 12:16 Pulse Rate 80 09/26/22 12:16 Respiratory Rate 14 09/26/22 12:16 Blood Pressure 123/88 09/26/22 12:16 Pulse Oximetry 99 09/26/22 12:16 Oxygen Delivery Method 09/26/22 12:16 Course <Kyung Mejia PA-C - Last Filed: 09/26/22 16:27> Orders Ordered: Discontinued Medications Hydromorphone HCl (Hydromorphone 0.5 Mg Inj) 0.5 mg IV NOW ONE Stop: 09/26/22 12:28 Last Admin: 09/26/22 12:31 Dose: 0.5 mg Documented By: ACOSTA Ketorolac Tromethamine (Ketorolac 30 Mg/Ml Vial) 15 mg IM NOW ONE Stop: 09/26/22 15:02 Last Admin: 09/26/22 15:09 Dose: 15 mg Documented By: PAWEL Vital Signs Vital signs: Vital Signs - 8 hr 09/26/22 12:16 Temperature 98.0 F Pulse Rate 80 Respiratory Rate 14 Blood Pressure 123/88 Pulse Oximetry 99 Oxygen Delivery Method Room Air <Aruna Odonnell DO - Last Filed: 09/27/22 09:29> Orders Ordered: Discontinued Medications Hydromorphone HCl (Hydromorphone 0.5 Mg Inj) 0.5 mg IV NOW ONE Stop: 09/26/22 12:28 Last Admin: 09/26/22 12:31 Dose: 0.5 mg Documented By: ACOSTA Ketorolac Tromethamine (Ketorolac 30 Mg/Ml Vial) 15 mg IM NOW ONE Stop: 09/26/22 15:02 Last Admin: 09/26/22 15:09 Dose: 15 mg Documented By: PAWEL Vital Signs Vital signs: Vital Signs - 8 hr 09/26/22 12:16 Temperature 98.0 F Pulse Rate 80 Respiratory Rate 14 Blood Pressure 123/88 Pulse Oximetry 99 Oxygen Delivery Method Room Air MDM - Extremity Injury (Upper) <LEONILA Romeo Last Filed: 09/26/22 16:27> Imaging Data Left shoulder x-ray: Radiologist's Impression: Soft tissues:? No suspicious soft tissue calcifications.? ? IMPRESSION:? Comminuted mildly displaced left humeral head/neck fractures. Left elbow x-ray ? Soft tissues:? No elbow joint effusion.? No suspicious soft tissue calcifications.? ? ? IMPRESSION:? Suboptimal visualization and repeat plain film imaging or CT scanning when the patient can tolerate positioning for the such examinations is recommended.? A definite fracture is not seen but radial head fracture is not effectively evaluated for. ? Left humeral x-ray Soft tissues:? No suspicious soft tissue calcifications.? ? IMPRESSION:? Previously identified acute humeral head/neck fractures again noted.? No diaphysis or distal humeral fracture seen.? Again, the elbow is not fully evaluated.? Follow-up plain film imaging or CT scanning may become necessary. ? MDM Narrative Medical decision making narrative: Discussed with patient diagnosis and treatment. The mildly displaced comminuted fracture of the left humerus discovered on x-ray. The fracture is most likely triggering patient's symptoms, significant pain. Therefore will immobilize the shoulder with a sling. We will provide referral to Orthopedics. In terms of pain control, we will try tramadol, NSAIDs such as ibuprofen [id number]. Patient's symptoms improved over duration of stay with Dilaudid and ketorolac therapies. Findings and discharge diagnosis discussed with patient/family followed by verbalization of understanding Return precautions discussed with patient/family whom verbalize understanding. Discharge Plan Departure Patient Disposition: Home Clinical Impression: Closed fracture of head of left humerus Instructions: DI for Elbow Pain, DI for Humeral Fracture Activity Restrictions/Additional Instructions: *You have been diagnosed with a comminuted fracture of leftt humeral head, left elbow contusion, but no fracture *What to do: *Please continue to take your regular medications as directed. [c ] New medication prescriptions sent to your pharmacy: tramadol 50 mg three times a day Referral to [facility] telephone [phone] *Please follow up with your primary care provider in 2-3 days, call for an appointment. Let them know you were seen in the Emergency Department and that we ask that you be seen in follow up. We will electronically transmit a record of today's note if your PCP is in our system *Return to Emergency Department if you should have any new, worsening or concerning symptoms, such as worsening pain, persistent vomiting or other bothersome symptoms Prescriptions: New tramadol 50 mg tablet 50 mg PO TID PRN (Reason: pain) Qty: 30 0RF No Action niacin 500 mg capsule, extended release 500 mg PO DAILY rosuvastatin 20 mg tablet 20 mg PO DAILY benzonatate 100 mg capsule 100 mg PO BID PRN (Reason: cough) Qty: 20 0RF amlodipine 5 mg tablet 7.5 mg PO DAILY Label Comments: take 1 tablet by mouth once daily cholecalciferol (vitamin D3) [Vitamin D3] 50 mcg (2,000 unit) Capsule 2,000 unit PO DAILY ashwagandha root extract 300 mg Capsule 300 mg PO DAILY meloxicam 7.5 mg tablet 7.5 mg PO BID PRN (Reason: pain) Qty: 14 0RF cyclobenzaprine 10 mg tablet 10 mg PO TID PRN (Reason: muscle spasm) Qty: 14 0RF Referrals: Izzy Gong MD [Primary Care Provider] - Jeffrey Martínez MD [Physician] - Stand Alone Forms: Patient Portal/API <Aruna Odonnell DO - Last Filed: 09/27/22 09:29> Cosign ED Attending Cosignature Attestation: I was immediately available in the department for consultation. Documentation has been reviewed. I agree with assessment and plan.
[2022-09-26] MEDS: KETOROLAC 30 MG/ML VIAL 15 MG IM (15:09)
[2022-09-26 16:35] VITALS: BP 130/78; PULSE 74; RESP 16; O2SAT 97
== END 2022-09-26 16:35 | disposition home or self-care (01) ==
PROVIDERS: Emergency Provider Physician Assistant Medical; Family Provider Nurse Practitioner Family; PCP Student in an Organized Health Care Education/Training Program; Referring Provider Nurse Practitioner
DX: S42.292A Other displaced fracture of upper end of left humerus, initial encounter for closed fracture (principal); W17.89XA Other fall from one level to another, initial encounter; Y93.K1 Activity, walking an animal
CPT/HCPCS: 73030; 73060; 73080; 96372; 96374; 99284; J1170; J1885

== ENCOUNTER → 2023-06-18 11:40 | Outpatient (CLI) | payer MEDICARE, OTHER, SELFPAY ==
--- NOTE | 2023-06-18 11:42 | DI.RAD.S_ITS ---
PROCEDURE: XR TIBIA FIBULA LT 2V INDICATIONS: Lower leg injury TECHNIQUE: 2 views of the tibia and fibula were acquired. COMPARISON: None. FINDINGS: Bones: No fractures or dislocations. No suspicious bony lesions. Soft tissues: No suspicious soft tissue calcifications or masses. Multiple vascular clips project over the medial ankle soft tissues. IMPRESSION: No fracture. No osseous lesion. If symptoms and/or clinical suspicion for pathology persists, further assessment with repeat radiographs (7-10 days) or advanced imaging (e.g. CT, MRI or bone scan) should be considered. Dictated by: Sally Cuevas MD, PhD on 06/18/2023 at 13:15 Approved by: Sally Cuevas MD, PhD on 06/18/2023 at 13:18
== END ==
PROVIDERS: Family Provider Nurse Practitioner Family; PCP Nurse Practitioner; Referring Provider Nurse Practitioner Family; Visit Provider Nurse Practitioner Family
DX: S89.90XA Unspecified injury of unspecified lower leg, initial encounter (principal); X58.XXXA Exposure to other specified factors, initial encounter
CPT/HCPCS: 73590

== ENCOUNTER → 2023-09-03 11:57 | Outpatient (CLI) | payer MEDICARE, OTHER, SELFPAY ==
--- NOTE | 2023-09-03 | DI.RAD.S_ITS ---
Bone Density Report Name: KAIT PEREZ Age: 67 Sex: Female Ethnicity: White Date of : 1955 Indication: osteopenia; monitoring treatment; Referring Provider: AGGIE MILLER Study: Bone densitometry was performed. Exam Date: September 03, 2023 Accession number: [id number] Bone Density: Region BMD T-score Z-score Classification Femoral Neck (Left) 0.604 -2.2 -0.4 Osteopenia Total Hip (Left) 0.714 -1.9 -0.4 Osteopenia Femoral Neck (Right) 0.640 -1.9 -0.1 Osteopenia Total Hip (Right) 0.785 -1.3 0.2 Osteopenia Total Hip Mean 0.749 -1.6 -0.1 Osteopenia Total Forearm (Left) 0.430 -2.8 -0.8 Osteoporosis 1/3 Forearm (Left) 0.508 -3.1 -1.0 Osteoporosis UD Forearm (Left) 0.317 -2.2 -0.7 Osteopenia World Health Organization criteria for BMD impression classify patients as: Normal (T-score at or above -1.0), Osteopenia (T-score between -1.0 and -2.5), or Osteoporosis (T-score at or below -2.5). 10-year Fracture Risk: FRAX not reported because: Treated for osteoporosis Previous Exams: -- Region Exam Age BMD T-score BMD Change BMD Change Date g/cm2 vs Baseline vs Previous -- Total Hip(Left) 09/03/2023 67 0.714 -1.9 0.004 (0.6%)# 0.004 (0.6%)# 07/03/2021 65 0.710 -1.9 Total Hip(Right) 09/03/2023 67 0.785 -1.3 -0.014 (-1.7%)# -0.014 (-1.7%)# 07/03/2021 65 0.799 -1.2 -- *Denotes significance at 95% confidence level, LSC for Total Hip = 0.027 g/cm2 # Denotes dissimilar scan types or analysis methods Impression: The patient has low bone mass, based on the Left Femoral Neck T-score. No significant bone loss was observed. Discussion: PATIENT UNDER TREATMENT WITH NO SIGNIFICANT BMD LOSS SINCE LAST EXAM. In an untreated patient, BMD typically declines with age. A lack of decline or gain is usually a sign that treatment is efficacious and fracture risk is reduced. It is important to ask patients whether they are taking their medications and to encourage continued and appropriate compliance with their osteoporosis therapies to reduce fracture risk. It is also important to review their risk factors and encourage appropriate calcium and vitamin D intakes, exercise, fall prevention and other lifestyle measures. Follow-Up: Consider a repeat BMD and Vertebral Fracture Assessment (VFA) exam in 2 years or sooner if medically necessary, to reassess this patient's status. Reported by: EUGENIO HALEY M.D. on 09/03/2023 12:46:00 PM.
== END ==
PROVIDERS: Family Provider Nurse Practitioner Family; PCP Nurse Practitioner; Referring Provider Internal Medicine Endocrinology, Diabetes & Metabolism; Visit Provider Internal Medicine Endocrinology, Diabetes & Metabolism
DX: M81.0 Age-related osteoporosis without current pathological fracture (principal); E21.3 Hyperparathyroidism, unspecified; Z78.0 Asymptomatic menopausal state; Z79.83 Long term (current) use of bisphosphonates; Z90.710 Acquired absence of both cervix and uterus
CPT/HCPCS: 77080

== ENCOUNTER → 2024-09-01 10:02 | Outpatient (CLI) | payer MEDICARE, OTHER, SELFPAY ==
--- NOTE | 2024-09-01 10:04 | DI.RAD.S_ITS ---
PROCEDURE: XR DEXA AXIAL SKELETON INDICATIONS: age-related osteoporosis COMPARISON: [facility], CR, XR DEXA AXIAL SKELETON, 09/03/2023, 12:18. FINDINGS: Left Hip: Bone mineral density 0.702 g/cm2, T score -2.0. There is interval 1.7% decrease in total left hip bone mineral density. Left Femoral Neck: Bone mineral density 0.594 g/cm2, T score -2.3. There is interval 1.7% decrease in left femoral neck bone mineral density. Right Hip: Bone mineral density 0.803 g/cm2, T score -1.1. There is interval 2.4% increase in total right hip bone mineral density. Right Femoral Neck: Bone mineral density 0.620 g/cm2, T score -2.1. There is interval 3% decrease in right femoral neck bone mineral density Left Forearm: Bone mineral density 0.499 g/cm2, T score -3.3. There is interval 1.9% decrease in left forearm bone mineral density. Fracture Risk Calculation (when applicable): 10-year fracture risk of a major osteoporotic fracture 13 percent and of a hip fracture 3.1 percent. (T score greater or equal to -1.0 to: NORMAL) (T score from -1.1 to -2.4: OSTEOPENIA) (T score less than or equal to -2.5: OSTEOPOROSIS) IMPRESSION: Osteoporosis. Follow-up guidelines as follows: Osteoporosis: Consider a repeat DEXA and Vertebral Fracture Assessment (VFA) exam in 2 years or sooner if medically necessary, to reassess this patient's status. Osteopenia: Consider a repeat DEXA in 2-3 years to reassess this patient's status, or if there is a new clinical indication. Normal: Consider a repeat DEXA in 5 years or sooner, or if there is a new clinical indication. All treatment decisions require clinical judgment and consideration of individual patient factors, including patient preferences, comorbidities, previous drug use, risk factors not captured in the FRAX model (e.g., frailty, falls, vitamin D deficiency, increased bone turnover, interval significant decline in bone density ) and possible under- or over-estimation of fracture risk by FRAX. In addition, the NOF Guide recommends that FDA-approved medical therapies be considered in postmenopausal women and men age >= 50 years with a: * Hip or vertebral (clinical or morphometric) fracture * T-score of <=-2.5 at the spine or hip * Ten-year fracture probability by FRAX of >= 3% for hip fracture or >=20% for major osteoporotic fracture. People with diagnosed cases of osteoporosis or at high risk for fracture should have regular bone mineral density tests. For patients eligible for Medicare, routine testing is allowed once every 2 years. The testing frequency can be increased to one year for patients who have rapidly progressing disease, those who are receiving or discontinuing medical therapy to restore bone mass, or have additional risk factors. Dictated by: Seven Oakley M.D. on 09/01/2024 at 15:03 Approved by: Seven Oakley M.D. on 09/01/2024 at 15:04
== END ==
PROVIDERS: Family Provider Nurse Practitioner Family; PCP Nurse Practitioner; Referring Provider Internal Medicine Endocrinology, Diabetes & Metabolism; Visit Provider Internal Medicine Endocrinology, Diabetes & Metabolism
DX: M81.0 Age-related osteoporosis without current pathological fracture (principal)
CPT/HCPCS: 77080; 77081

== ENCOUNTER → 2024-10-10 10:51 | Outpatient (CLI) | payer MEDICARE, OTHER, SELFPAY ==
[2024-10-10 13:05] LABS: Free T4, Direct Thyroxine 1.13 ng/dL (0.78-2.19)
[2024-10-10 13:19] LABS: Thyroid Stimulating Hormone 1.01 uIU/mL (0.47-4.68)
== END ==
PROVIDERS: Family Provider Nurse Practitioner Family; PCP Nurse Practitioner; Referring Provider Internal Medicine Endocrinology, Diabetes & Metabolism; Visit Provider Internal Medicine Endocrinology, Diabetes & Metabolism
DX: R68.89 Other general symptoms and signs (principal)
CPT/HCPCS: 36415; 84439; 84443

== ENCOUNTER → 2024-10-13 10:15 | Outpatient (CLI) | payer MEDICARE, OTHER, SELFPAY ==
--- NOTE | 2024-10-13 10:18 | DI.RAD.S_ITS ---
PROCEDURE: XR THORACIC SPINE 3V INDICATIONS: OSTEOPORSIS TECHNIQUE: 3 views of the thoracic spine were acquired. COMPARISON: [facility], CR, XR LUMBAR SPINE 2-3V, 10/13/2024, 10:14. FINDINGS: Bones: No fractures or dislocations. No suspicious bony lesions. 12 pairs of ribs are noted, and appear intact where visualized. Mild, multilevel degenerative disc disease. Soft tissues: No paravertebral stripe thickening. IMPRESSION: No acute bony abnormality. Dictated by: Joey Ware M.D. on 10/13/2024 at 14:38 Approved by: Joey Ware M.D. on 10/13/2024 at 14:39
--- NOTE | 2024-10-13 10:18 | DI.RAD.S_ITS ---
PROCEDURE: XR LUMBAR SPINE 2-3V INDICATIONS: OSTEOPORSIS TECHNIQUE: 3 views of the lumbar spine were acquired. COMPARISON: [facility], , L-SPINE MINIMUM 4 VIEWS, 04/24/2015, 9:57. FINDINGS: Bones: 5 [id number] vertebrae are present. There is normal bony alignment. No vertebral body compression fractures. No suspicious bony lesions. Mild disc height loss at all levels. Facet arthrosis of L4 through S1. Soft tissues: Overlying bowel gas pattern is normal. No suspicious soft tissue calcifications. IMPRESSION: Mild, multilevel degenerative disc disease and lower lumbar facet arthrosis. Dictated by: Joey Ware M.D. on 10/13/2024 at 14:38 Approved by: Joey Ware M.D. on 10/13/2024 at 14:38
== END ==
PROVIDERS: Family Provider Nurse Practitioner Family; PCP Nurse Practitioner; Referring Provider Internal Medicine Endocrinology, Diabetes & Metabolism; Visit Provider Internal Medicine Endocrinology, Diabetes & Metabolism
DX: M81.0 Age-related osteoporosis without current pathological fracture (principal); M51.369 Other intervertebral disc degeneration, lumbar region without mention of lumbar back pain or lower extremity pain; M47.816 Spondylosis without myelopathy or radiculopathy, lumbar region
CPT/HCPCS: 72072; 72100